=== PATIENT | female | born 2000 | race Caucasian/White ===

== ENCOUNTER 2020-10-07 16:57 | Emergency (ER) | payer SELFPAY ==
[~2020-10-07] VITALS: Ht 152.4 cm; Wt 63.5 kg
[2020-10-07 16:59] VITALS: BP 127/67; Ht 152.4 cm; Wt 63.5 kg
== END 2020-10-07 19:26 | disposition home or self-care (01) ==
LOC: ED 16:57
DX: U07.1 COVID-19 (principal); B34.9 Viral infection, unspecified
CPT/HCPCS: U0003